=== PATIENT | female | born 1980 | race Caucasian/White ===

== ENCOUNTER 2022-01-13 06:59 | Emergency (ER) | payer BC ==
[~2022-01-13] VITALS: Ht 185.4 cm; Wt 77.1 kg
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
--- NOTE | 2022-01-13 07:31 | NUR ---
PT STATED THAT SHE WILL CALL A [employer] TO GO BACK HOME.
[2022-01-13 08:22] VITALS: BP 125/68
== END 2022-01-13 08:22 | disposition left against medical advice (07) ==
LOC: ER 07:04
DX: Z53.21 Procedure and treatment not carried out due to patient leaving prior to being seen by health care provider (principal)

== ENCOUNTER 2022-05-26 11:26 | Emergency (ER) | payer BC ==
[~2022-05-26] VITALS: Ht 188 cm; Wt 94.3 kg
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
--- NOTE | 2022-05-26 12:00 | NUR ---
UA sent to lab
--- NOTE | 2022-05-26 12:10 | NUR ---
Seen by DR. Rodriguez
[2022-05-26] MEDS ORDERED: HYDROCODONE/APAP 5/325MG TABLET PO ONE (13:00)
[2022-05-26] MEDS ORDERED: HYDROCODONE/APAP 5/325MG TABLET ONE (13:07)
[2022-05-26] MEDS ORDERED: HYDR-4209 PO (14:32)
--- NOTE | 2022-05-26 14:42 | NUR ---
Patient discharged to home in stable condition. Written and verbal after care instructions given. Patient verbalizes understanding of instruction.
--- NOTE | 2022-05-26 14:55 | NUR ---
CLEAN lt leg with HYDROGIN BROXID BY ED TACH
[2022-05-26 15:08] VITALS: BP 129/94
[2022-05-27] MEDS ORDERED: HYDR-4209 PO (10:33)
== END 2022-05-26 15:14 | disposition home or self-care (01) ==
LOC: ER 11:28
DX: S82.851G Displaced trimalleolar fracture of right lower leg, subsequent encounter for closed fracture with delayed healing (principal); T84.89XD Other specified complication of internal orthopedic prosthetic devices, implants and grafts, subsequent encounter; J45.909 Unspecified asthma, uncomplicated; F17.200 Nicotine dependence, unspecified, uncomplicated; Z79.899 Other long term (current) drug therapy; X58.XXXD Exposure to other specified factors, subsequent encounter
CPT/HCPCS: 73590-TC; 73610-TC

== ENCOUNTER → 2022-11-25 | Emergency (ER) | payer BC, OTHER ==
[~2022-11-25] VITALS: Ht 185.4 cm; Wt 90.7 kg
[~2022-11-25] MED LIST: HYDR-4209 PO
[2022-11-25 17:39] VITALS: BP 160/90; TEMP 98; O2SAT 99
--- NOTE | 2022-11-25 17:46 | NUR ---
Pt adamantly refusing ANY and ALL intervention states "I just want to get the fuck out of here" notified
--- NOTE | 2022-11-25 17:51 | NUR ---
medically cleared pt for booking. Discharged to [facility] custody
== END ==
LOC: ER 17:40
DX: S01.81XA Laceration without foreign body of other part of head, initial encounter (principal); J45.909 Unspecified asthma, uncomplicated; F17.200 Nicotine dependence, unspecified, uncomplicated; Z79.899 Other long term (current) drug therapy; Y04.0XXA Assault by unarmed brawl or fight, initial encounter; Y93.89 Activity, other specified; Y92.89 Other specified places as the place of occurrence of the external cause; Y99.8 Other external cause status